=== PATIENT | female | born 1985 | race Two or more races ===

== ENCOUNTER 2019-06-19 08:26 | Inpatient (IN) | payer OTHER ==
[2019-06-19] MEDS ORDERED: Lactated Ringers 1000 ML Bag* 1,000 ML IV ONE (09:23)
[2019-06-19] MEDS ORDERED: Promethazine INJ(RESTRICTED)* 25 MG/ML 1 ML VIAL IV ONE ×2 (09:23→11:00)
[2019-06-19] MEDS ORDERED: Nalbuphine* 10 MG/ML 1 ML VIAL IV ONE ×2 (09:23→10:30)
[2019-06-19] MEDS ORDERED: Buffered Lidocaine 1% SYRIN* 1 ML/SYRINGE INTRADERM ONE (09:23)
--- NOTE | 2019-06-19 09:28 | HP ---
General Information - Reason for Visit SROM clear fluid since 7AM, contractions since 1-2AM, + bloody show, no active bleeding, + FM - General Information Maternal Age: 33 Grav: 1 Para: 0 SAB: 0 IEA: 0 Estimated Due Date: 07/02/19 Determined By: LMP Gestational Age in Weeks/Days: 38.1 Maternal Blood Type and Rh: A Positive - Results this Serology/RPR Result: Non-Reactive Rubella Result: Immune HBsAg Result: Negative HIV Result: Negative GBS Culture Result: Negative Past Medical History Pertinent Past Medical History: Non-Contributory Pertinent Past Surgical History: None Pertinent Family History: See Records - PGM: DM, HTN, stroke; MGM: HTN; MGF: stroke - Antepartal Records Antepartal Records: Reviewed, Complicated by: - IUGR Review of Systems Constitutional: Uncomfortable CV Complaint: No Respiratory: Shortness of Breath: No Gastrointestinal: No Nausea/Vomiting, Normal Bowel Movement Genitourinary: Leaking Fluid, No Dysuria, No Bleeding Musculoskeletal: No Epigastric Pain, Back Pain, Contractions, Pressure Neurological: No Headache, No Visual Changes Movement: Normal Exam Allergies/Adverse Reactions: Allergies No Known Allergies Allergy (Verified 06/19/19 08:33) BP: 123/58, P: 62: T:99.1, O2:100% - Measurements Height: 5 ft 3 in Weight: 135 lb Weight in lbs: 135.865759 Body Mass Index (BMI): 23.9 Pre- Weight: 110 lb Weight Gained This : 25 lbs and 0 ozs - Exam Breast: Breast Exam Deferred CVA: No CVA Tenderness Extremities: No Edema Heart: Normal Rhythm/Heart Sounds HEENT: No Significant Findings Lungs: Clear Bilaterally Rectal: Rectal Exam Deferred Reflexes: DTR 2+ Thyroid: No Thyromegaly - Abdominal Exam Abdomen Exam: Fundal Height Consistent with Dates - Ultrasound/Biophysical Profile Ultrasound Status: Not Done Targeted Exam Findings Estimated Weight: 5lfu7xl Cervical Exam: 4cm, 5cm Effacement: 90% Station: -1 Presenting Part: Vertex Membrane Status: Intact Amniotic Fluid Evaluation: Clear Bleeding/Discharge: Bloody Show EFM Findings - External Monitor Findings Baseline Heart Rate: 140 External Monitor Findings: Accelerations Present, No Pattern of Variable or Late Decelerations, Variability Moderate, Baseline Stable Contractions: Regular, Moderate, 45-90 Seconds Contraction Frequency: 2-4 Assessment/Plan - Assessment 33 y.o. , 38w1d EGA, cat I NST, IUGR, active labor, SROM - Obstetrical Risk Factors Obstetrical Risk Factors: IUGR - Plan Plan: Admit - Anticipate Vaginal Delivery - Date/Time of Admission Date of Admission: 06/19/19 Time of Admission: 09:00
[2019-06-19] MEDS ORDERED: Lactated Ringers 1000 ML Bag* 1,000 ML IV SCH ×2 (10:00→12:00)
[2019-06-19] MEDS ORDERED: Nalbuphine* 10 MG/ML 1 ML VIAL IV PRN (10:15)
[2019-06-19 10:17] LABS: ABS Lymphocytes 1.5 10^3/ul (1.0-4.8); ABS Monocytes 0.7 10^3/ul (0-0.8); ABS Neutrophils 10.8 10^3/ul (1.5-7.7); Eosinophil % 0.1 %; Hematocrit 37 % (35-47); Hemoglobin 12.7 g/dL (12.0-16.0); Lymphocyte % 11.7 %; Mean Corpuscular HGB Conc 35 g/dL (31-36); Mean Corpuscular Hemoglobin 33 pg (27-31); Mean Corpuscular Volume 97 fL (80-97); Nucleated Red Blood Cells % 0.1; Platelet Count 196 10^3/uL (150-450); Red Blood Count 3.81 10^6 /uL (3.70-4.87); Red Cell Distribution Width 14 % (10-15)
[2019-06-19] MEDS ORDERED: Promethazine INJ(RESTRICTED)* 25 MG/ML 1 ML VIAL IV PRN (10:17)
[2019-06-19] MEDS ORDERED: OBEPIDURAL* 0 ML EPIDURAL ONE (10:51)
[2019-06-19] MEDS ORDERED: Oxytocin in LR* 20 UNITS/1,000 ML BAG IVPB ONE (11:02)
[2019-06-19] MEDS ORDERED: Dibucaine 1% 28.35 GM TUBE ONE (11:36)
[2019-06-19] MEDS ORDERED: Glycerin ADULT SUPP PR PRN (11:43)
[2019-06-19] MEDS ORDERED: Ibuprofen TAB* 600 MG PO PRN (11:43)
[2019-06-19] MEDS ORDERED: Acetaminophen TAB* 325 MG PO PRN (11:43)
[2019-06-19] MEDS ORDERED: Witch Hazel PAD* JAR TOPICAL PRN (11:43)
[2019-06-19] MEDS ORDERED: Dibucaine 1% 28.35 GM TUBE PR PRN (11:43)
--- NOTE | 2019-06-19 11:48 | PROCNOTE ---
[facility] OB: Delivery Note - Delivery A Date of : 06/19/19 Time of : 11:16 Sex: Female Weight at : 5 lb Score 1 Minute: 9 Score 5 Minutes: 10 Gestational Age in Weeks and Days at Delivery: 38 Weeks and 1 Days Delivery Method: Spontaneous Vaginal Labor: Spontaneous Amniotic Fluid: Clear Estimated Blood Loss: 250 Anesthesia/Analgesia: IM/IV Delivered By: Edilia Lopes - Nursery Level of Nursery: Regular/Bedside - Perineum Perineal Injury: Perineal Laceration, 1st Degree Perineal Repair: By Delivering Practioner - Events Delivery Events of Note: Pitocin Only After Delivery, Precipitous Delivery Delivery Events of Note Comment: left nuchal arm
[2019-06-19] MEDS ORDERED: Oxytocin in LR* 20 UNITS/1,000 ML BAG IVPB SCH (12:00)
[2019-06-19] MEDS ORDERED: Lidocaine 1% INJ* 10 MG/ML 30 ML SDV ONE (12:09)
[2019-06-19] MEDS ORDERED: Simethicone TAB* 80 MG TAB.CHEW PO SCH (12:30)
[2019-06-19] MEDS ORDERED: Ammonia Inhalant* 1 EA AMP ONE (14:25)
[2019-06-19] MEDS: Docusate CAP* 100 MG PO SCH (21:36)
[2019-06-20 08:36] LABS: ABS Eosinophils 0.1 10^3/ul (0-0.6); ABS Lymphocytes 2.1 10^3/ul (1.0-4.8); ABS Monocytes 0.9 10^3/ul (0-0.8); ABS Neutrophils 10.3 10^3/ul (1.5-7.7); Eosinophil % 0.5 %; Hematocrit 29 % (35-47); Hemoglobin 10.2 g/dL (12.0-16.0); Lymphocyte % 15.6 %; Mean Corpuscular HGB Conc 35 g/dL (31-36); Mean Corpuscular Hemoglobin 34 pg (27-31); Mean Corpuscular Volume 96 fL (80-97); Mean Platelet Volume 6.9 fL (7.4-10.4); Platelet Count 158 10^3/uL (150-450); Red Blood Count 3.01 10^6 /uL (3.70-4.87); Red Cell Distribution Width 14 % (10-15); White Blood Count 13.3 10^3/uL (3.5-10.8)
[2019-06-20] MEDS: Docusate CAP* 100 MG PO SCH ×3 (10:41→21:16)
[2019-06-20] MEDS: Ferrous Gluconate TAB* 324 MG TAB PO SCH ×2 (10:41→21:16)
--- NOTE | 2019-06-20 15:32 | PTEDU ---
Patient Name: MANSI URIAS MANSI URIAS selected video: Never Ever Shake a Baby to view on 06/20/2019 at 3:30:27 PM from [facility] – [email or web address] [id number]
--- NOTE | 2019-06-20 15:42 | PTEDU ---
Patient Name: MANSI URIAS MANSI URIAS selected video: Follow Me Mum: [facility] [place] [facility] Successful to view on 06/20/2019 at 3:39:55 PM from [email or web address]
--- NOTE | 2019-06-20 17:17 | PTEDU ---
Patient Name: MANSI URIAS MANSI URIAS selected video: BBOB: Nurturing Your Gorgeous &Growing Baby by to view on 0 06/20/2019 at 5:15:51 PM from [email or web address]
--- NOTE | 2019-06-20 17:19 | PTEDU ---
Patient Name: MANSI URIAS MANSI URIAS selected video: BBOB: Nurturing Your Gorgeous &Growing Baby by to view on 0 06/20/2019 at 5:16:55 PM from [email or web address]
--- NOTE | 2019-06-20 17:20 | PTEDU ---
Patient Name: MANSI URIAS MANSI URIAS selected video: BBOB: Nurturing Your Gorgeous &Growing Baby by to view on 0 06/20/2019 [facility] 5:17:53 [email or web address]
[2019-06-21] MEDS: Docusate CAP* 100 MG PO SCH ×3 (09:31→14:00)
[2019-06-21] MEDS: Ferrous Gluconate TAB* 324 MG TAB PO SCH (09:32)
[2019-06-21 10:02] VITALS: BP 124/69
[2019-06-21] MEDS ORDERED: Influenza VAC *QUAD* 2019-20* 0.5 ML SYRINGE IM ONE (12:00)
[2019-06-21] MEDS ORDERED: Tetan/Diph/Pertus SYR(Tdap)* 0.5 ML SYR(BOOSTRIX) use SYR IM ONE (12:16)
== END 2019-06-21 16:10 | disposition home or self-care (01) | DRG 560 ==
LOC: MCHOBOUT 08:26 → MCHOB 09:36
PROVIDERS: ADMIT Midwife; ATTEND Midwife
PROC: 10E0XZZ Delivery of Products of Conception, External Approach (ICD-10-PCS; principal; 2019-06-19)
PROC: 0HQ9XZZ Repair Perineum Skin, External Approach (ICD-10-PCS; 2019-06-19)
DX: O36.5990 Maternal care for other known or suspected poor fetal growth, unspecified trimester, not applicable or unspecified (principal); Z37.0 Single live birth; O70.0 First degree perineal laceration during delivery; O32.2XX0 Maternal care for transverse and oblique lie, not applicable or unspecified; O62.3 Precipitate labor; Z3A.38 38 weeks gestation of pregnancy
CPT/HCPCS: 36415; 85025; 86850; 86900; 86901; 88307; 90686; A9270-GY; J2300; J2550